=== PATIENT | female | born 2000 | race Caucasian/White ===

== ENCOUNTER 2025-02-10 03:16 | Inpatient (IN) ==
[2025-02-10] MEDS: LACTATED RINGER'S 1,000 ML IV PRN (03:45)
[2025-02-10] MEDS ORDERED: LIDOCAINE 1% LOCAL 20 ML VIAL INFIL PRN (03:48)
[2025-02-10 04:42] LABS: Hematocrit (blood only) 36.3 % (37.0-47.0); Hemoglobin 12.1 g/dl (12.0-16.0); Mean Corpuscular Hemoglobin 30.6 pg (25.0-34.0); Mean Corpuscular Volume 91.7 fL (80.0-100.0); Platelet Count 213 K/uL (130-400); RDW Standard Deviation 45.0 fL (36.4-46.3); Red Blood Count 3.96 M/uL (4.20-5.40); White Blood Count 15.14 K/ul (4.8-10.8)
[2025-02-10] MEDS ORDERED: diphenhydrAMINE 50 MG/ML VIAL IV PRN (04:49)
[2025-02-10] MEDS ORDERED: NALOXONE HCL 1 MG in SODIUM CHLORIDE 0.9% 1,000 ML IV PRN (04:49)
[2025-02-10] MEDS ORDERED: LIDOCAINE 2% MPF LOCAL 5 ML VIAL EPI PRN (04:49)
[2025-02-10] MEDS ORDERED: NALBUPHINE HCL INJ 10 MG/ML AMP IV PRN (04:49)
[2025-02-10] MEDS ORDERED: ONDANSETRON INJ 2 MG/ML 2 ML VIAL IV PRN (04:49)
[2025-02-10] MEDS ORDERED: SODIUM CHLORIDE 0.9% PF INJ 10 ML VIAL EPI PRN (04:49)
[2025-02-10] MEDS ORDERED: BUPIVACAINE 0.25% PF 30 ML VIAL EPI PRN (04:49)
[2025-02-10] MEDS ORDERED: NALOXONE HCL 0.4 MG/1 ML VIAL/CARP IV PRN (04:49)
[2025-02-10] MEDS ORDERED: ROPIVACAINE 0.5% PF 5 MG/ML 20 ML VIAL EPI PRN (04:49)
--- NOTE | 2025-02-10 04:52 | Anesthesiology Consultation ---
Date of Service February 10, 2025 Assessment & Plan (1) Encounter for pre-operative examination: Chart Review Chart Review: Patient NOT seen in Pre Admission Testing and Acceptable Risk for Labor Epidural Consults Requested none History Height/Weight Height: 5 ft 1 in Weight: 73.663 kg Allergies Allergy/AdvReac Type Severity Reaction Status Date / Time No Known Allergies Allergy Verified 02/10/25 03:34 Medications Home Medications Medication Instructions Recorded Confirmed Last Taken breast pump #1 ea 12/06/24 02/07/25 Unknown vits no.124-ferrous fum 1 tab PO DAILY 01/25/25 02/10/25 01/25/25 27 mg iron-folic acid 800 mcg tablet ( Vitamin) Active Medications Generic Name Dose Route Start Last Admin Trade Name Freq PRN Reason Stop Dose Admin Lactated Ringer's 1,000 mls @ 125 mls/hr 02/10/25 03:48 02/10/25 05:02 Lr IV 02/12/25 03:47 125 mls/hr .Q8H PRN Administration L&D Protocol Protocol Past Medical History Medical History (Updated 02/10/25 @ 04:52 by Bob Corona MD) Encounter for pre-operative examination Potassium deficiency Varicella vaccination Exercise / Class Metabolic Activity II 4-5 Yardwork/Stairs/Walk up hill Past Family History Family History Grandmother (Maternal) Breast cancer Mother Ovarian cancer Uterine cancer Denies family history of Colorectal cancer Past Surgical History Surgical History No pertinent past surgical history Social History Smoking Status: Current every day smoker Smoking cigarettes per day: Vapes 1-2x per day- Attempting to quit Do You Dip or Chew Tobacco: No Hx Alcohol Use: No Hx Substance Use: No Physical Exam Vital Signs Last Vital Signs Temp 36.6 C 02/10/25 03:35 Pulse 85 02/10/25 05:16 Resp 20 02/10/25 03:35 BP 129/80 02/10/25 05:16 Pulse Ox 100 02/10/25 05:16 Testing Laboratory Results 02/10/25 04:07
[2025-02-10] MEDS: BUPIVACAINE 0.25% PF 30 ML VIAL EPI STA (05:17)
[2025-02-10] MEDS: LIDOCAINE 2%/EPINEPHRINE 1:200,000 20 ML PF EPI STA (05:17)
[2025-02-10] MEDS: fentANYL 2 MCG/ML BUPIVacaine 0.125%-NSS 100ML BAG EPI PRN (05:17)
[2025-02-10] MEDS: fentANYL 2 MCG/ML BUPIVacaine 0.125%-NSS 100ML BAG ONE (05:35)
[2025-02-10] MEDS: LIDOCAINE 2%/EPINEPHRINE 1:200,000 20 ML PF ONE (05:35)
[2025-02-10] MEDS: BUPIVACAINE 0.25% PF 30 ML VIAL ONE (05:35)
[2025-02-10] MEDS: SODIUM CHLORIDE 0.9% PF INJ 10 ML VIAL EPI STA (05:36)
[2025-02-10] MEDS: SODIUM CHLORIDE 0.9% PF INJ 10 ML VIAL ONE (06:13)
--- NOTE | 2025-02-10 07:19 | History & Physical Report ---
Date of Service February 10, 2025 Assessment & Plan (1) Normal labor: Plan pt has been admitted. labs reviewed. cont current care. desires tums for heartburn. fhts categ 1. Admission and Anticipated Discharge Date Admission Date: February 10, 2025 History of Present Illness Chief Complaint: labor Primary Care Provider: NIDIA PCP 24yo at 39+wks daniele presents to LD with srom and labor. She had ibarra last pm and early this am called with regular ctx and leaking fluid, on arrival toLD , she was 5-6cm and admitted and desired and received an epidural. She notes she is now comfortable. Recent sve per nurse. PNC 1. occasional vaping PNL rh pos, ri, gbs neg OBH: g1 GYNH: nl paps no stds. Allergies Allergy/AdvReac Type Severity Reaction Status Date / Time No Known Allergies Allergy Verified 02/10/25 03:34 Home Medications Medication Instructions Recorded Confirmed Type breast pump #1 ea 12/06/24 02/07/25 Rx vits no.124-ferrous fum 1 tab PO DAILY 01/25/25 02/10/25 History 27 mg iron-folic acid 800 mcg tablet ( Vitamin) Patient History Medical History (Updated 02/10/25 @ 07:19 by Odessa Oliver MD, FACOG) Encounter for pre-operative examination Potassium deficiency Varicella vaccination Surgical History No pertinent past surgical history Family History Grandmother (Maternal) Breast cancer Mother Ovarian cancer Uterine cancer Denies family history of Colorectal cancer Social History Smoking Status: Current every day smoker Tobacco Type: E-cigarettes / Vaping Cigarettes Per Day: Vapes 1-2x per day- Attempting to quit; Do You Dip or Chew Tobacco: No; Hx Alcohol Use: No Hx Substance Use: No Preferred Language: Armenian Communication Ability: Effective Mower Operator Required: No Beliefs That Will Affect Care: None marital status: Single marital status details: Aki Paniagua (27) [phone] Current Living Situation: Significant Other Current Living Situation Comment: Lives with FOB, 1 cat- FOB changes litter current occupational status: employed current occupation: [employer] Installer Other Information That Helps Us Care for You: No Feels Safe at Home: Yes Safety Concerns: Feels Safe At This Time Assistive Devices: None Review of Systems as per Subjective / HPI Physical Exam Constitutional: WD/WN, vitals as above Respiratory: normal respiratory effort, lungs clear to auscultation Cardiovascular: Rate/Rhythm: regular rate and regular rhythm Gastrointestinal (Abdomen): soft gravid nt [id number]# Musculoskeletal: no edema Neurologic: grossly normal Psychiatric: A+Ox3, euthymic affect Genitourinary: Manual OB Exam: + cervical dilation 7 cm, + cervical effacement 90% and + station (per nurse) 0 OB Exam Monitor Tracing: + external FHT monitor used, + external uterine monitor used (q2-3), + category I and + normal FHT variability Results & Data Vital Signs (Past 12 Hours) Vital Signs Temp Pulse Resp BP Pulse Ox 02/10/25 07:11 85 100 02/10/25 07:06 77 100 02/10/25 07:05 80 118/72 02/10/25 07:01 88 100 02/10/25 06:56 83 100 02/10/25 06:51 82 99 02/10/25 06:50 78 112/75 02/10/25 06:46 80 100 02/10/25 06:41 82 100 02/10/25 06:36 72 99 02/10/25 06:34 81 112/72 02/10/25 06:31 78 100 02/10/25 06:26 88 100 02/10/25 06:25 97.9 F 02/10/25 06:21 64 100 02/10/25 06:18 70 113/67 02/10/25 06:16 78 100 02/10/25 06:13 82 110/67 02/10/25 06:11 78 100 02/10/25 06:07 83 112/64 02/10/25 06:06 73 100 02/10/25 06:02 71 117/66 02/10/25 06:01 71 100 02/10/25 05:57 78 112/69 02/10/25 05:56 66 100 02/10/25 05:53 67 116/69 02/10/25 05:52 72 92 02/10/25 05:51 74 94 02/10/25 05:48 71 113/63 02/10/25 05:46 77 99 02/10/25 05:43 74 113/67 91 02/10/25 05:41 76 97 02/10/25 05:37 67 116/73 02/10/25 05:36 73 98 02/10/25 05:32 68 117/70 02/10/25 05:31 68 98 02/10/25 05:29 76 89 L 02/10/25 05:26 71 111/69 100 02/10/25 05:24 69 117/73 02/10/25 05:22 71 119/70 02/10/25 05:21 72 98 02/10/25 05:20 73 118/77 02/10/25 05:18 67 125/79 02/10/25 05:16 85 129/80 100 02/10/25 05:14 79 133/81 02/10/25 05:11 84 99 02/10/25 05:06 80 94 02/10/25 05:03 74 92 02/10/25 05:01 101 H 100 02/10/25 04:56 79 100 02/10/25 04:51 87 100 02/10/25 04:46 87 100 02/10/25 03:35 97.9 F 86 20 111/70 02/10/25 03:24 86 111/70 Coding Level of Care Code None Diagnoses Normal labor O80; Z37.9
[2025-02-10] MEDS: CALCIUM CARBONATE 500 MG CHEWABLE TAB PO PRN (07:25)
--- NOTE | 2025-02-10 10:05 | Labor Progress Brief Note ---
Date of Service February 10, 2025 Subjective Comfortable with epidural. Cat 1, Q 2 min 10/100/0 Will begin pushing when she feels urge to push. Assessment & Plan Admission and Anticipated Discharge Date Admission Date: February 10, 2025 Results & Data Vital Signs (Past 12 Hours) Vital Signs Temp Pulse Resp BP Pulse Ox 02/10/25 10:01 92 H 100 02/10/25 09:56 96 H 100 02/10/25 09:51 86 100 02/10/25 09:49 89 128/88 02/10/25 09:46 99 H 100 02/10/25 09:41 97 H 100 02/10/25 09:36 85 100 02/10/25 09:35 36.6 C 77 18 122/80 02/10/25 09:31 96 02/10/25 09:31 97 H 02/10/25 09:31 101 H 91 02/10/25 09:30 18 02/10/25 09:30 18 02/10/25 09:26 79 99 02/10/25 09:21 87 100 02/10/25 09:20 75 122/80 02/10/25 09:16 72 100 02/10/25 09:11 77 100 02/10/25 09:06 77 100 02/10/25 09:04 85 126/85 02/10/25 09:01 80 100 02/10/25 09:00 18 02/10/25 09:00 18 02/10/25 08:56 84 99 02/10/25 08:51 80 100 02/10/25 08:50 88 126/86 02/10/25 08:46 74 99 02/10/25 08:41 76 99 02/10/25 08:36 81 100 02/10/25 08:34 86 127/83 02/10/25 08:31 77 99 02/10/25 08:30 18 02/10/25 08:30 18 02/10/25 08:26 83 99 02/10/25 08:21 79 99 02/10/25 08:20 93 H 109/77 02/10/25 08:16 87 99 02/10/25 08:15 81 93 02/10/25 08:11 94 H 100 02/10/25 08:06 88 100 02/10/25 08:05 82 119/74 02/10/25 08:01 85 99 02/10/25 08:00 18 02/10/25 08:00 18 02/10/25 07:56 81 100 02/10/25 07:51 73 100 02/10/25 07:49 93 H 110/74 02/10/25 07:46 83 100 02/10/25 07:41 73 99 02/10/25 07:36 75 100 02/10/25 07:35 85 110/70 02/10/25 07:31 86 96 02/10/25 07:30 18 02/10/25 07:30 18 02/10/25 07:26 82 100 02/10/25 07:21 81 100 02/10/25 07:20 85 93 02/10/25 07:19 80 118/73 02/10/25 07:16 78 100 02/10/25 07:11 85 100 02/10/25 07:06 77 100 02/10/25 07:05 36.8 C 80 118/72 02/10/25 07:01 88 100 02/10/25 06:56 83 100 02/10/25 06:51 82 99 02/10/25 06:50 78 112/75 02/10/25 06:46 80 100 02/10/25 06:41 82 100 02/10/25 06:36 72 99 02/10/25 06:34 81 112/72 02/10/25 06:31 78 100 02/10/25 06:26 88 100 02/10/25 06:25 36.6 C 02/10/25 06:21 64 100 02/10/25 06:18 70 113/67 02/10/25 06:16 78 100 02/10/25 06:13 82 110/67 02/10/25 06:11 78 100 02/10/25 06:07 83 112/64 02/10/25 06:06 73 100 02/10/25 06:02 71 117/66 02/10/25 06:01 71 100 02/10/25 05:57 78 112/69 02/10/25 05:56 66 100 02/10/25 05:53 67 116/69 02/10/25 05:52 72 92 02/10/25 05:51 74 94 02/10/25 05:48 71 113/63 02/10/25 05:46 77 99 02/10/25 05:43 74 113/67 91 02/10/25 05:41 76 97 02/10/25 05:37 67 116/73 02/10/25 05:36 73 98 02/10/25 05:32 68 117/70 02/10/25 05:31 68 98 02/10/25 05:29 76 89 L 02/10/25 05:26 71 111/69 100 02/10/25 05:24 69 117/73 02/10/25 05:22 71 119/70 02/10/25 05:21 72 98 02/10/25 05:20 73 118/77 02/10/25 05:18 67 125/79 02/10/25 05:16 85 129/80 100 02/10/25 05:14 79 133/81 02/10/25 05:11 84 99 02/10/25 05:06 80 94 02/10/25 05:03 74 92 02/10/25 05:01 101 H 100 02/10/25 04:56 79 100 02/10/25 04:51 87 100 02/10/25 04:46 87 100 02/10/25 03:35 36.6 C 86 20 111/70 02/10/25 03:24 86 111/70 Coding Level of Care Code None
--- NOTE | 2025-02-10 12:24 | Labor Progress Brief Note ---
Date of Service February 10, 2025 Subjective FHT Cat 1 [place] Q 2 Pushing, good effort - approx 2h. Continue labor. Assessment & Plan Admission and Anticipated Discharge Date Admission Date: February 10, 2025 Results & Data Vital Signs (Past 12 Hours) Vital Signs Temp Pulse Resp BP Pulse Ox 02/10/25 12:16 110 H 96 02/10/25 12:12 108 H 82 L 02/10/25 12:11 107 H 97 02/10/25 12:06 132 H 98 02/10/25 12:01 98 H 98 02/10/25 12:00 121 H 20 83 L 02/10/25 11:56 125 H 94 02/10/25 11:53 37.1 C 02/10/25 11:51 113 H 97 02/10/25 11:49 105 H 126/78 02/10/25 11:46 104 H 98 02/10/25 11:41 103 H 98 02/10/25 11:40 130 H 91 02/10/25 11:36 129 H 92 02/10/25 11:35 96 H 124/72 02/10/25 11:34 130 H 94 02/10/25 11:31 140 H 97 02/10/25 11:30 18 02/10/25 11:30 18 02/10/25 11:28 131 H 94 02/10/25 11:26 101 H 98 02/10/25 11:22 130 H 93 02/10/25 11:21 103 H 99 02/10/25 11:19 111 H 123/63 02/10/25 11:16 108 H 86 L 02/10/25 11:11 111 H 99 02/10/25 11:10 115 H 92 02/10/25 11:06 109 H 99 02/10/25 11:05 137 H 140/69 02/10/25 11:04 116 H 91 02/10/25 11:01 148 H 96 02/10/25 11:00 20 02/10/25 11:00 20 02/10/25 10:59 126 H 88 L 02/10/25 10:56 115 H 100 02/10/25 10:51 100 02/10/25 10:51 118 H 02/10/25 10:51 96 H 145/63 H 02/10/25 10:46 105 H 99 02/10/25 10:41 113 H 98 02/10/25 10:36 102 H 99 02/10/25 10:34 129 H 122/91 02/10/25 10:31 100 H 100 02/10/25 10:30 18 02/10/25 10:30 18 02/10/25 10:26 95 H 98 02/10/25 10:21 114 H 99 02/10/25 10:19 96 H 123/87 02/10/25 10:16 114 H 99 02/10/25 10:11 114 H 99 02/10/25 10:06 91 H 100 02/10/25 10:04 100 H 130/85 02/10/25 10:01 92 H 100 02/10/25 10:00 18 02/10/25 10:00 18 02/10/25 09:56 96 H 100 02/10/25 09:51 86 100 02/10/25 09:49 89 128/88 02/10/25 09:46 99 H 100 02/10/25 09:41 97 H 100 02/10/25 09:36 85 100 02/10/25 09:35 36.6 C 77 18 122/80 02/10/25 09:31 96 02/10/25 09:31 97 H 02/10/25 09:31 101 H 91 02/10/25 09:30 18 02/10/25 09:30 18 02/10/25 09:26 79 99 02/10/25 09:21 87 100 02/10/25 09:20 75 122/80 02/10/25 09:16 72 100 02/10/25 09:11 77 100 02/10/25 09:06 77 100 02/10/25 09:04 85 126/85 02/10/25 09:01 80 100 02/10/25 09:00 18 02/10/25 09:00 18 02/10/25 08:56 84 99 02/10/25 08:51 80 100 02/10/25 08:50 88 126/86 02/10/25 08:46 74 99 02/10/25 08:41 76 99 02/10/25 08:36 81 100 02/10/25 08:34 86 127/83 02/10/25 08:31 77 99 02/10/25 08:30 18 02/10/25 08:30 18 02/10/25 08:26 83 99 02/10/25 08:21 79 99 02/10/25 08:20 93 H 109/77 02/10/25 08:16 87 99 02/10/25 08:15 81 93 02/10/25 08:11 94 H 100 02/10/25 08:06 88 100 02/10/25 08:05 82 119/74 02/10/25 08:01 85 99 02/10/25 08:00 18 02/10/25 08:00 18 02/10/25 07:56 81 100 02/10/25 07:51 73 100 02/10/25 07:49 93 H 110/74 02/10/25 07:46 83 100 02/10/25 07:41 73 99 02/10/25 07:36 75 100 02/10/25 07:35 85 110/70 02/10/25 07:31 86 96 02/10/25 07:30 18 02/10/25 07:30 18 02/10/25 07:26 82 100 02/10/25 07:21 81 100 02/10/25 07:20 85 93 02/10/25 07:19 80 118/73 02/10/25 07:16 78 100 02/10/25 07:11 85 100 02/10/25 07:06 77 100 02/10/25 07:05 36.8 C 80 118/72 02/10/25 07:01 88 100 02/10/25 06:56 83 100 02/10/25 06:51 82 99 02/10/25 06:50 78 112/75 02/10/25 06:46 80 100 02/10/25 06:41 82 100 02/10/25 06:36 72 99 02/10/25 06:34 81 112/72 02/10/25 06:31 78 100 02/10/25 06:26 88 100 02/10/25 06:25 36.6 C 02/10/25 06:21 64 100 02/10/25 06:18 70 113/67 02/10/25 06:16 78 100 02/10/25 06:13 82 110/67 02/10/25 06:11 78 100 02/10/25 06:07 83 112/64 02/10/25 06:06 73 100 02/10/25 06:02 71 117/66 02/10/25 06:01 71 100 02/10/25 05:57 78 112/69 02/10/25 05:56 66 100 02/10/25 05:53 67 116/69 02/10/25 05:52 72 92 02/10/25 05:51 74 94 02/10/25 05:48 71 113/63 02/10/25 05:46 77 99 02/10/25 05:43 74 113/67 91 02/10/25 05:41 76 97 02/10/25 05:37 67 116/73 02/10/25 05:36 73 98 02/10/25 05:32 68 117/70 02/10/25 05:31 68 98 02/10/25 05:29 76 89 L 02/10/25 05:26 71 111/69 100 02/10/25 05:24 69 117/73 02/10/25 05:22 71 119/70 02/10/25 05:21 72 98 02/10/25 05:20 73 118/77 02/10/25 05:18 67 125/79 02/10/25 05:16 85 129/80 100 02/10/25 05:14 79 133/81 02/10/25 05:11 84 99 02/10/25 05:06 80 94 02/10/25 05:03 74 92 02/10/25 05:01 101 H 100 02/10/25 04:56 79 100 02/10/25 04:51 87 100 02/10/25 04:46 87 100 02/10/25 03:35 36.6 C 86 20 111/70 02/10/25 03:24 86 111/70 Coding Level of Care Code None
[2025-02-10] MEDS: OXYTOCIN 30 UNITS/NSS 30 UNITS/500 ML BAG IV PRN (12:43)
--- NOTE | 2025-02-10 13:00 | Delivery Summary ---
Vaginal Delivery Summary Date of Service February 10, 2025 Vaginal Delivery Summary and 2nd Degree LAC Vaginal Delivery Summary: Pre-delivery diagnoses: 24yo @ 39 5/7, IOL, vaping in Post-delivery diagnoses: same Procedure: spontaneous vaginal delivery, shoulder dystocia (mild) Surgeon: Monik Silva DO Complications: none Findings: Viable male . Apgars: 8/9 . Weight pending, please see nursery records Estimated QBL: 206cc Description of delivery: The patient progressed to complete with epidural anesthesia. She then began to push. She spontaneously vaginally delivered a viable from the cephalic presentation. The head delivered in HERNAN position. The anterior shoulder did not immediately deliver, therefore patient was repositioned using McRobert's maneuver, and then posterior shoulder was easily delivered, followed by anterior shoulder, followed by the body. 70 seconds. The baby was placed on mother's abdomen and a spontaneous cry was heard. The cord was doubly clamped and cut. A segment was retained for cord gases. Cord blood was obtained. The placenta was delivered spontaneously intact with a 3-vessel cord. The uterus and vagina were swept of clots and debris. IV pitocin was given. The uterus became firm. The cervix, vagina, and perineum were inspected. 2nd degree perineal laceration repaired with 3-0 Vicryl. Excellent hemostasis was observed. The mother and baby are recovering in stable and good condition in the room. Sponge, needle and instrument counts were correct x 2. Monik Silva DO [facility] Vaginal Delivery Charge Vaginal Delivery Codes: 86948 global code for the antepartum, delivery, and post- Delivery Type Details: and 2nd Degree LAC
[2025-02-10] MEDS ORDERED: DIPHTHER/TETAN/PERTUS Vaccine (Tdap, Adol/Adult) 0.5mL IM ONE (13:03)
[2025-02-10] MEDS ORDERED: OXYTOCIN 30 UNITS/NSS 30 UNITS/500 ML BAG IV PRN (13:03)
[2025-02-10] MEDS ORDERED: HYDROCORTISONE ACETATE 25 MG SUPP PR PRN (13:03)
[2025-02-10] MEDS: BENZOCAINE 20% SPRY 85 APPLN/85 GM CAN EXT PRN (13:47)
[2025-02-10] MEDS: IBUPROFEN 600 MG TAB PO PRN (13:47)
--- NOTE | 2025-02-10 14:04 | Anesthesia Procedure Note ---
Date of Service February 10, 2025 Anesthesia Post Epidural Note Vital Signs Vital Signs: Temp Pulse Resp BP Pulse Ox 98.8 F 68 18 115/71 99 02/10/25 11:53 02/10/25 14:01 02/10/25 13:42 02/10/25 13:58 02/10/25 14:01 Notes Mental Status: alert / awake / arousable and participated in evaluation Nausea / Vomiting: adequately controlled Pain: adequately controlled Airway Patency, RR, SpO2: stable & adequate BP & HR: stable & adequate Hydration State: stable & adequate Neuraxial Anesthesia: was administered and sensory block is resolving Anesthetic Complications: no major complications apparent and Pt Satisfied with anesthetic care Epidural: Removed without complications and With tip intact
[2025-02-10 16:07] LABS: Base Excess Cord Arterial Bld -3.6 mEq/L (-9-1.8); Base Excess Cord Venous Blood -0.3 mEq/L (-7.7-1.9); CO2 Cord Arterial Blood 54 mmHg (39.1-73.5); Cord Venous Blood PO2 43 mmHg (14.1-43.3); HCO3 Cord Arterial Blood 24 mmol/L (19.7-28.5); O2 Saturation Cord Venous Bld 83.7 % (<68); PO2 Cord Arterial Blood < 20 mmHg (4.1-31.7); pH Cord Arterial Blood 7.26 (7.1-7.38)
[2025-02-10] MEDS: DOCUSATE SODIUM 100 MG CAP PO SCH (20:49)
[2025-02-10 21:20] VITALS: RESP 16
[2025-02-11 06:05] LABS: Hematocrit (blood only) 28.5 % (37.0-47.0); Hemoglobin 9.7 g/dl (12.0-16.0)
--- NOTE | 2025-02-11 06:24 | Obstetrical Progress Note ---
Date of Service February 11, 2025 Assessment & Plan (1) care and examination: Plan: 24yo post- day 1 s/p Fells well today Continue post- care Encourage ambulation and /bottle feeding Pain controlled with Ibuprofen Vital Signs and Hgb stable Rh+, Rubella immune Admission and Anticipated Discharge Date Admission Date: February 10, 2025 Supervising Physician Co-Signing Physician Notes Resident Physician Supervision Note: I was present with Dr. Fabian during the history and exam. I discussed the case with the resident and agree with the findings and plan as documented in the note. Any exceptions or clarifications are listed here: PPD#1 doing well, desires DC home tomorrow. Continue routine care. Documented By: Monik Silva, Subjective 24yo post- day 1 s/p Ambulation: Ambulating normally Voiding: No voiding problems Passing Gas:: Yes Diet Tolerance:: regular diet Lochia:: Small Feeding Type:: breast and bottle feeding Current Pain Level: 4/10 controlled with Ibuprofen Resting comfortably this AM in NAD Denies BLACKWELL, CP, SOB, N/V/D, LE pain/swelling Physical Exam Physical Exam: General: patient resting comfortably, NAD, non-toxic in appearance, answers questions appropriately Skin: warm, dry, intact Heart: S1/S2 heard, regular, no m/r/g Lungs: equal air entry bilaterally, no rales/rhonchi/wheezes Abd: Normoactive BS, soft, NT/ND, uterine fundus firm below umbilicus Ext: warm, no clubbing/cyanosis or edema, Ghada's neg Neuro: nonfocal, patient AAOx4, speech intact, no facial droop, moving all extremities on command Results & Data Vital Signs (Past 12 Hours) Vital Signs Temp Pulse Resp BP Pulse Ox O2 Del Method 02/11/25 03:15 36.5 C 62 16 107/64 98 Room Air 02/10/25 23:30 36.6 C 70 16 109/70 97 Room Air 02/10/25 20:45 36.6 C 68 16 114/70 98 Room Air Resident Activity Tracking Resident Involvement: Resident Care Provided Care Provided: OB Delivery
[2025-02-11] MEDS: PRENATAL VITAMIN 1 TAB PO SCH (08:57)
[2025-02-12] MEDS: ACETAMINOPHEN 325 MG TAB PO PRN (01:20)
--- NOTE | 2025-02-12 06:21 | Obstetrical Progress Note ---
Date of Service February 12, 2025 Assessment & Plan (1) care and examination: Plan: 24yo post- day 2 s/p Fells well today Continue post- care Encourage ambulation and /bottle feeding Pain controlled with Ibuprofen, Tylenol Vital Signs stable Discharge today, follow up with OB provider in 6 weeks Admission and Anticipated Discharge Date Admission Date: February 10, 2025 Supervising Physician Co-Signing Physician Notes Resident Physician Supervision Note: I interviewed and examined the patient. Discussed with Dr. Fabian and agree with findings and plan as documented in the note. Any exceptions or clarifications are listed here: [ ] Documented By: Annabella Mariano MD, FACOG, MSCP Subjective 24yo post- day 2 s/p Ambulation: Ambulating normally Voiding: No voiding problems Passing Gas:: Yes Diet Tolerance:: regular diet Lochia:: Small Feeding Type:: breast and bottle feeding Current Pain Level: 3/10 controlled with Ibuprofen, Tylenol Resting comfortably this AM in NAD Denies BLACKWELL, CP, SOB, N/V/D, LE pain/swelling Physical Exam Physical Exam: General: patient resting comfortably, NAD, non-toxic in appearance, answers questions appropriately Skin: warm, dry, intact Heart: S1/S2 heard, regular, no m/r/g Lungs: equal air entry bilaterally, no rales/rhonchi/wheezes Abd: soft, NT/ND, uterine fundus firm below umbilicus Ext: warm, no clubbing/cyanosis or edema, Ghada's neg Neuro: nonfocal, patient AAOx4, speech intact, no facial droop, moving all extremities on command Results & Data Vital Signs (Past 12 Hours) Vital Signs Temp Pulse Resp BP Pulse Ox O2 Del Method 02/12/25 01:00 36.5 C 54 L 16 122/82 100 Room Air 02/11/25 21:00 36.5 C 60 16 114/76 99 Room Air Resident Activity Tracking Resident Involvement: Resident Care Provided Care Provided: OB Delivery
[2025-02-12 09:38] VITALS: PULSE 86; TEMP 98.1; O2SAT 99
[2025-02-12 12:32] VITALS: BP 122/82
== END 2025-02-12 12:32 | disposition home or self-care (01) | DRG 807 ==
LOC: 4S1 03:16 → 4E2 16:03